=== PATIENT | female | born 1970 | race Caucasian/White ===

== ENCOUNTER 2020-10-20 22:00 | Emergency (ER) | payer OTHER ==
[2020-10-20 22:20] VITALS: TEMP 98.6
[2020-10-20] MEDS ORDERED: SODIUM CHLORIDE 0.9% 500 ML 500 ML IV STA (22:44)
[2020-10-20] MEDS ORDERED: ASPIRIN 81 MG PO STA (22:44)
[2020-10-20] MEDS ORDERED: MORPHINE SULFATE 2 MG/ML SYRINGE IVP STA (22:44)
[2020-10-20] MEDS ORDERED: ONDANSETRON 4 MG/2 ML VIAL IVP STA (22:44)
[2020-10-20 22:59] LABS: Basophils # (A) 0.1 k/uL (0-0.2); Basophils % (A) 1 %; Eosinophils # (A) 0.1 k/uL (0-0.7); Eosinophils % (A) 1 %; HCT 44.7 % (34.0-46.0); HGB 15.2 gm/dL (11.4-16.0); Lymphocytes # (A) 2.7 k/uL (1.0-4.8); Lymphocytes % (A) 23 %; MCHC 34.1 g/dL (31.0-37.0); MCV 96.7 fL (80.0-100.0); Mean Platelet Volume 7.3; Monocytes # (A) 0.6 k/uL (0-1.0); Monocytes % (A) 5 %; Neutrophils # (A) 8.1 k/uL (1.3-7.7); Neutrophils % (A) 68 %; Platelet Count 324 k/uL (150-450); RBC 4.62 m/uL (3.80-5.40); RDW 13.2 % (11.5-15.5); WBC 11.9 k/uL (3.8-10.6)
[2020-10-20 23:12] LABS: Partial Thromboplastin Time 24.3 sec (22.0-30.0); Prothrombin Time 10.3 sec (9.0-12.0)
[2020-10-20 23:24] LABS: ALT 13 U/L (4-34); AST 31 U/L (14-36); African American GFR (CKD) >90 (>60 ml/min/1.73 sqM); Albumin 4.8 g/dL (3.5-5.0); Alkaline Phosphatase 70 U/L (38-126); Anion Gap 10 mmol/L; Blood Urea Nitrogen 7 mg/dL (7-17); Calcium 9.8 mg/dL (8.4-10.2); Carbon Dioxide 23 mmol/L (22-30); Chloride 106 mmol/L (98-107); Glucose 120 mg/dL (74-99); Magnesium 1.9 mg/dL (1.6-2.3); Non-African American GFR(CKD) >90 (>60 ml/min/1.73 sqM); Potassium 3.6 mmol/L (3.5-5.1); Sodium 139 mmol/L (137-145); Total Bilirubin 0.8 mg/dL (0.2-1.3); Total Protein 7.4 g/dL (6.3-8.2)
--- NOTE | 2020-10-20 23:32 | ED ---
General Adult HPI - General Chief complaint: Chest Pain Stated complaint: chest & neck pain,dizziness Time Seen by Provider: 10/20/20 22:18 Source: patient Mode of arrival: wheelchair - History of Present Illness Initial comments: 49-year-old female patient presents to the emergency department today for evaluation of left-sided chest pain worsens with inspiration. Patient states she does feel short of breath. Patient states the pain started about a week ago has been intermittent. States that she generally is at rest when the pain starts. Denies any nausea or vomiting. Denies any sweats. States she also has left calf pain and swelling. States she did go on a road trip in August down to [place], [place] on the [place] and back to [place]. Patient denies history of blood clot. Denies any current use of hormonal medications. Denies any fever or chills. Denies cough or congestion. She does have history of smoking cigarettes. Denies any family history of cardiac disease. Denies history of diabetes. Patient denies any recent rash, abdominal pain, diarrhea, con stipation, back pain, numbness, tingling, dizziness, weakness, hematuria, dysuria, urinary urgency, urinary frequency, headache, visual changes, or any other complaints. - Related Data Home Medications Medication Instructions Recorded Confirmed No Known Home Medications 10/20/20 10/20/20 Allergies Allergy/AdvReac Type Severity Reaction Status Date / Time No Known Allergies Allergy Verified 10/20/20 23:17 Review of Systems ROS Statement: Those systems with pertinent positive or pertinent negative responses have been documented in the HPI. ROS Other: All systems not noted in ROS Statement are negative. Past Medical History Past Medical History: Diabetes Mellitus History of Any Multi-Drug Resistant Organisms: None Reported Past Surgical History: Section Past Psychological History: Anxiety Smoking Status: Current every day smoker Past Alcohol Use History: Daily Past Drug Use History: Marijuana General Exam General appearance: alert, in no apparent distress, other (Physical well- developed, well-nourished adult female patient in no acute distress. Vital signs upon presentation are temperature 98.6F, pulse 97, respirations 18, blood pressure 150/114, pulse ox 96% on room air.) Eye exam: Present: normal appearance, PERRL, EOMI. Absent: scleral icterus, conjunctival injection, periorbital swelling ENT exam: Present: normal exam, normal oropharynx, mucous membranes moist Respiratory exam: Present: normal lung sounds bilaterally. Absent: respiratory distress, wheezes, rales, rhonchi, stridor Cardiovascular Exam: Present: regular rate, normal rhythm, normal heart sounds. Absent: systolic murmur, diastolic murmur, rubs, gallop, clicks GI/Abdominal exam: Present: soft, normal bowel sounds. Absent: distended, tenderness, guarding, rebound, rigid Neurological exam: Present: alert, oriented X3, CN II-XII intact Psychiatric exam: Present: normal affect, normal mood Skin exam: Present: warm, dry, intact, normal color. Absent: rash Course Vital Signs 10/20/20 10/20/20 10/20/20 22:05 22:28 22:30 Temperature 98.6 F Pulse Rate 97 Pulse Rate [ 90 Bilateral Radial] Respiratory 18 18 Rate Blood Pressure 150/114 O2 Sat by Pulse 96 Oximetry 10/20/20 10/20/20 22:57 23:40 Temperature 98.6 F Pulse Rate 82 73 Pulse Rate [ Bilateral Radial] Respiratory 16 18 Rate Blood Pressure 151/104 136/96 O2 Sat by Pulse 96 98 Oximetry EKG Findings - EKG Comments: EKG Findings:: EKG obtained at 2216 shows normal sinus rhythm with incomplete right bundle branch block. Ventricular rate is 94, VT interval 164, QRS durat ion 92, QT 374, QTC 467. No evidence of ST elevation or depression. Medical Decision Making - Medical Decision Making 49-year-old female patient presents to the emergency department today for evaluation of left-sided chest pain worse with inspiration. She is afebrile normal vital signs. Labs reviewed and did reveal white blood cell count at 11.9. Glucose 120. Troponin is negative. D-dimer negative. Did perform CT chest angiography for pulmonary embolus him which was negative. EKG did reveal right bundle branch block. No previous for comparison. Patient's pain is atypical has been going on for the last few days. We will discharge follow up with her primary care physician for recheck in 1-2 days. Return parameters were discussed in detail. She verbalizes understanding and agrees with this plan. Case discussed with my attending Dr. Wood. - Lab Data Result diagrams: 10/20/20 22:48 10/20/20 22:48 Lab Results 10/20/20 10/20/20 10/20/20 Range/Units 22:48 22:48 22:48 WBC 11.9 H (3.8-10.6) k/uL RBC 4.62 (3.80-5.40) m/uL Hgb 15.2 (11.4-16.0) gm/dL Hct 44.7 (34.0-46.0) % MCV 96.7 (80.0-100.0) fL MCH 33.0 (25.0-35.0) pg MCHC 34.1 (31.0-37.0) g/dL RDW 13.2 (11.5-15.5) % Plt Count 324 (150-450) k/uL MPV 7.3 Neutrophils % 68 % Lymphocytes % 23 % Monocytes % 5 % Eosinophils % 1 % Basophils % 1 % Neutrophils # 8.1 H (1.3-7.7) k/uL Lymphocytes # 2.7 (1.0-4.8) k/uL Monocytes # 0.6 (0-1.0) k/uL Eosinophils # 0.1 (0-0.7) k/uL Basophils # 0.1 (0-0.2) k/uL PT 10.3 (9.0-12.0) sec INR 1.0 (<1.2) APTT 24.3 (22.0-30.0) sec D-Dimer 0.42 (<0.60) mg/L FEU Sodium 139 (137-145) mmol/L Potassium 3.6 (3.5-5.1) mmol/L Chloride 106 (98-107) mmol/L Carbon Dioxide 23 (22-30) mmol/L Anion Gap 10 mmol/L BUN 7 (7-17) mg/dL Creatinine 0.72 (0.52-1.04) mg/dL Est GFR (CKD-EPI)AfAm >90 (>60 ml/min/1.73 sqM) Est GFR (CKD-EPI)NonAf >90 (>60 ml/min/1.73 sqM) Glucose 120 H (74-99) mg/dL Calcium 9.8 (8.4-10.2) mg/dL Magnesium 1.9 (1.6-2.3) mg/dL Total Bilirubin 0.8 (0.2-1.3) mg/dL AST 31 (14-36) U/L ALT 13 (4-34) U/L Alkaline Phosphatase 70 (38-126) U/L Troponin I (0.000-0.034) ng/mL Total Protein 7.4 (6.3-8.2) g/dL Albumin 4.8 (3.5-5.0) g/dL 10/20/20 Range/Units 22:48 WBC (3.8-10.6) k/uL RBC (3.80-5.40) m/uL Hgb (11.4-16.0) gm/dL Hct (34.0-46.0) % MCV (80.0-100.0) fL MCH (25.0-35.0) pg MCHC (31.0-37.0) g/dL RDW (11.5-15.5) % Plt Count (150-450) k/uL MPV Neutrophils % % Lymphocytes % % Monocytes % % Eosinophils % % Basophils % % Neutrophils # (1.3-7.7) k/uL Lymphocytes # (1.0-4.8) k/uL Monocytes # (0-1.0) k/uL Eosinophils # (0-0.7) k/uL Basophils # (0-0.2) k/uL PT (9.0-12.0) sec INR (<1.2) APTT (22.0-30.0) sec D-Dimer (<0.60) mg/L FEU Sodium (137-145) mmol/L Potassium (3.5-5.1) mmol/L Chloride (98-107) mmol/L Carbon Dioxide (22-30) mmol/L Anion Gap mmol/L BUN (7-17) mg/dL Creatinine (0.52-1.04) mg/dL Est GFR (CKD-EPI)AfAm (>60 ml/min/1.73 sqM) Est GFR (CKD-EPI)NonAf (>60 ml/min/1.73 sqM) Glucose (74-99) mg/dL Calcium (8.4-10.2) mg/dL Magnesium (1.6-2.3) mg/dL Total Bilirubin (0.2-1.3) mg/dL AST (14-36) U/L ALT (4-34) U/L Alkaline Phosphatase (38-126) U/L Troponin I <0.012 (0.000-0.034) ng/mL Total Protein (6.3-8.2) g/dL Albumin (3.5-5.0) g/dL - Radiology Data Radiology results: report reviewed, image reviewed CT angiography for pulmonary embolism was obtained. Report reviewed in its entirety. Impression by Dr. Meyer shows negative exam. No evidence for pulmonary embolism. Disposition Clinical Impression: Chest pain Disposition: HOME SELF-CARE Condition: Good Instructions (If sedation given, give patient instructions): Chest Pain (ED) Additional Instructions: Follow-up with her primary care physician for recheck in 1-2 days. Take Tylenol and Motrin for pain control. Return to the emergency department for any new, worsening, or concerning symptoms. Is patient prescribed a controlled substance at d/c from ED?: No Referrals: None,Stated [Primary Care Provider] - 1-2 days Time of Disposition: 00:29
[2020-10-20 23:41] VITALS: BP 136/96; PULSE 73; RESP 18
--- NOTE | 2020-10-21 00:13 | CT ---
EXAMINATION TYPE: CT chest angio for PE DATE OF EXAM: 10/20/2020 COMPARISON: None HISTORY: Chest pain leg swelling CT DLP: 210.6 mGycm Automated exposure control for dose reduction was used. CONTRAST: Performed with IV Contrast, patient injected with 80 mL of Isovue 370. Images obtained from the thoracic inlet to the diaphragm with IV contrast. There are 3-D post process ed images. The lungs are clear of infiltrate. There is no evidence of a pulmonary mass. There is no pleural effu blanquita. There is no pericardial effusion. Upper abdominal soft tissues are intact. Heart size is normal . There is no pericardial effusion. There are no hilar masses. There is no mediastinal adenopathy. The thoracic spine is intact. There is no compression fracture. Sternum is intact. Bony thorax is int act. There is intact thoracic aorta. There is no dissection. Ascending aorta measures 3.3 cm. There is no evidence of filling defect in the pulmonary arteries. IMPRESSION: Negative exam. No evidence of pulmonary embolism.
[2020-10-21] MEDS ORDERED: ACET/COD 300 MG/30 MG STARTER PACK 6 TAB BTL PO STA (00:29)
== END 2020-10-21 00:34 | disposition home or self-care (01) ==
LOC: EC 22:00
DX: R07.1 Chest pain on breathing (principal); R06.02 Shortness of breath; M79.662 Pain in left lower leg; M79.89 Other specified soft tissue disorders; E11.9 Type 2 diabetes mellitus without complications; F41.9 Anxiety disorder, unspecified; F12.90 Cannabis use, unspecified, uncomplicated; F17.200 Nicotine dependence, unspecified, uncomplicated
CPT/HCPCS: 36415; 93005; 85379; 80053; 83735; 84484; 85025; 85610; 85730; 71275; 99285; 96374; 96375; J2405; J2270

== ENCOUNTER 2021-07-17 16:06 | Emergency (ER) | payer OTHER ==
[2021-07-17 16:10] VITALS: TEMP 98.3
--- NOTE | 2021-07-17 18:53 | XR ---
EXAMINATION TYPE: XR ribs bilat w pa chest xray DATE OF EXAM: 07/17/2021 5:48 PM INDICATION: Patient age:Female; 50 years old; Reason for study: left rib pain after fall;. COMPARISON: None TECHNIQUE: Multiple views of the bilateral ribs with PA chest FINDINGS: Acute left rib #10 fracture without displacement. Overall, the lungs are clear. The cardia c silhouette is normal in size. The remaining osseous structures are intact. IMPRESSION RIBS: Acute left rib #10 fracture without displacement. No obvious displaced additional fractures are ident ified.
[2021-07-17] MEDS ORDERED: KETOROLAC 15 MG/ML 1 ML VIAL IM STA (18:58)
--- NOTE | 2021-07-17 19:05 | ED ---
General Adult HPI - General Chief complaint: Fall Stated complaint: Fall, Possible Broken Ribs Time Seen by Provider: 07/17/21 17:07 Source: patient Mode of arrival: ambulatory Limitations: no limitations - History of Present Illness Initial comments: This 50-year-old female presents emergency Department with left-sided rib pain. Patient states 1 week ago she was cleaning up outside and tripped on a branch, falling onto a propane tank onto her left side. Patient states she has had pain to her left side since the fall. Patient states when she pushes on her posterior left ribs she states the pain increases. Patient states she has tried Tylenol, Motrin and heat with minimal relief. Patient states she is experiencing some muscle spasms as well to her left lateral side over her ribs. Patient states the pain is worse with walking, laying on her left side or pressing on her left side. Patient describes the pain as aching. Patient states she had a little bit of nausea yesterday. Patient denies any chest pain, shortness of breath, abdominal pain, change in bowel or bladder, change in appetite, lightheadedness, dizziness, headache, change in vision, rash, fever. - Related Data Previous Rx's Medication Instructions Recorded Cyclobenzaprine [Flexeril] 5 mg PO TID #15 tablet 07/17/21 Allergies Allergy/AdvReac Type Severity Reaction Status Date / Time No Known Allergies Allergy Verified 07/17/21 17:50 Review of Systems ROS Statement: Those systems with pertinent positive or pertinent negative responses have been documented in the HPI. ROS Other: All systems not noted in ROS Statement are negative. Past Medical History Past Medical History: Diabetes Mellitus, Hypertension History of Any Multi-Drug Resistant Organisms: None Reported Past Surgical History: Section Past Psychological History: Anxiety Smoking Status: Current every day smoker Past Alcohol Use History: Daily Past Drug Use History: Marijuana General Exam Limitations: no limitations General appearance: alert, in no apparent distress Head exam: Present: atraumatic, normocephalic, normal inspection Eye exam: Present: normal appearance, PERRL, EOMI. Absent: scleral icterus, conjunctival injection, periorbital swelling ENT exam: Present: normal exam, mucous membranes moist Neck exam: Present: normal inspection, full ROM. Absent: tenderness, meningismus, lymphadenopathy Respiratory exam: Present: normal lung sounds bilaterally. Absent: respiratory distress, wheezes, rales, rhonchi, stridor Cardiovascular Exam: Present: regular rate, normal rhythm, normal heart sounds. Absent: systolic murmur, diastolic murmur, rubs, gallop, clicks GI/Abdominal exam: Present: soft, normal bowel sounds. Absent: distended, tenderness, guarding, rebound, rigid Extremities exam: Present: normal inspection, full ROM, normal capillary refill. Absent: tenderness, pedal edema, joint swelling, calf tenderness Back exam: Present: normal inspection (Golfball size bruise on the lateral left side- patient states when this happened bruise was doubled his eyes and appeared green, however is now purplish in color. Patient tender to palpation over lower ribs on posterior and lateral left side. ), full ROM (Patient with pain when asked to twist or bend to the left, she states she has increased pain over her left posterior ribs when doing so), tenderness. Absent: CVA tenderness (R), CVA tenderness (L), paraspinal tenderness, vertebral tenderness Neurological exam: Present: alert, oriented X3, CN II-XII intact, normal gait. Absent: motor sensory deficit Psychiatric exam: Present: normal affect, normal mood Skin exam: Present: warm, dry, intact, normal color. Absent: rash Course Vital Signs 07/17/21 07/17/21 07/17/21 16:08 17:17 19:03 Temperature 98.3 F Pulse Rate 103 H 61 69 Respiratory 14 18 18 Rate Blood Pressure 147/93 115/78 134/86 O2 Sat by Pulse 98 98 99 Oximetry EKG Findings - EKG Comments: EKG Findings:: EKG impression: Sinus rhythm. Ventricular rate 62 bpm. SD interval 168. QRS duration 91. QT/QTC 379/383. No ST elevations or depressions noted Medical Decision Making - Medical Decision Making This 50-year-old female presents emergency Department with left-sided rib pain after falling on her left side 1 week ago. On physical exam, patient was tender to left posterior and lateral rib area. X-ray ribs bilateral with PA chest x- ray impression: Acute left rib #10 fracture without displacement. No obvious displace additional fractures are identified. EKG was trace ketones. After patient received Toradol injection she states her pain has significantly decreased and was down to 2/10. Flexeril prescription and Tylenol #3 prescri ption given to patient. Instructed patient to follow-up with her primary care provider next 1-2 days. Strict return precautions were discussed. Patient verbally agreed to plan. Patient sent home in stable condition. Case discussed in detail with my attending, . - Lab Data Lab Results 07/17/21 Range/Units 18:56 Urine Color Yellow Urine Appearance Clear (Clear) Urine pH 6.5 (5.0-8.0) Ur Specific [place] 1.013 (1.001-1.035) Urine Protein Negative (Negative) Urine Glucose (UA) Negative (Negative) Urine Ketones Trace H (Negative) Urine Blood Negative (Negative) Urine Nitrite Negative (Negative) Urine Bilirubin Negative (Negative) Urine Urobilinogen <2.0 (<2.0) mg/dL Ur Leukocyte Esterase Negative (Negative) Disposition Clinical Impression: Left rib fracture Disposition: HOME SELF-CARE Condition: Stable Instructions (If sedation given, give patient instructions): Rib Fracture (ED) Additional Instructions: Please follow-up with your primary care provider next 1-2 days. Take Tylenol #3 as directed. Take Flexeril as directed. Return to the emergency department with any new, worsening, or concerning symptoms. Prescriptions: Cyclobenzaprine [Flexeril] 5 mg PO TID #15 tablet Is patient prescribed a controlled substance at d/c from ED?: No Referrals: None,Stated [Primary Care Provider] - 1-2 days Santy Barry [STAFF PHYSICIAN] - 1-2 days Time of Disposition: 19:48
[2021-07-17 19:06] LABS: Appearance,Urine Clear (Clear); Bilirubin,Urine Negative (Negative); Blood,Urine Negative (Negative); Color,Urine Yellow; Glucose,Urine (UA) Negative (Negative); Ketones,Urine Trace (Negative); Leukocyte Esterase,Urine Negative (Negative); Nitrite,Urine Negative (Negative); PH, Urine 6.5 (5.0-8.0); Protein,Urine Negative (Negative); Specific Gravity,Urine 1.013 (1.001-1.035); Urobilinogen,Urine <2.0 mg/dL (<2.0)
[2021-07-17] MEDS ORDERED: ACET/COD 300 MG/30 MG STARTER PACK 6 TAB BTL PO STA (19:41)
[2021-07-17 20:04] VITALS: BP 117/82; PULSE 68; RESP 16
== END 2021-07-17 20:09 | disposition home or self-care (01) ==
LOC: EC 16:06
DX: S22.32XA Fracture of one rib, left side, initial encounter for closed fracture (principal); F17.200 Nicotine dependence, unspecified, uncomplicated; W17.89XA Other fall from one level to another, initial encounter
CPT/HCPCS: 93005; 81003; 71111; 99284; 96372; J1885